=== PATIENT | male | born 1965 | race Caucasian/White ===

== ENCOUNTER 2016-10-24 07:55 | Day surgery (SDC) | payer OTHER ==
--- NOTE | 2016-10-24 09:35 | Operative Note ---
Endoscopy Report Date: 10/24/16 Preoperative diagnosis: Screening colonoscopy, family history of colon cancer Procedure Type of procedure: Colonoscopy with snare polypectomy 2 Indications: Patient had been scheduled for colonoscopy on a couple of occasions. He was previously scheduled but states that he had eaten regular food the day before prior to starting his prep. Last time he had developed headache with taking GoLYTELY and then proceeded with vomiting of the prep. He is a 51- year-old white male originally referred from Dr. Tavarez for colonoscopy. Patient actually requested a colonoscopy. Patient's father of colon cancer in his 50s. Patient has not had any symptoms. He's had no prior colonoscopy. 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 I reviewed his records, this was done by Dr. Perez several years ago. 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 He was referred to where it was felt that no additional therapy or treatments were needed. Consent was obtained and patient was taken to same-day surgery endoscopy procedure room. He was positioned in a lateral decubitus position. Adequate intravenous sedation was achieved with titration of 9 mg Versed and 200 g fentanyl for the duration of the procedure. Variable stiffness Olympus colonoscope was inserted via the anus. With some difficulty was advanced to the cecum as he had a rather floppy redundant sigmoid colon and atonic colon. Ultimately appendiceal orifice and ileocecal valve were clearly identified and examined. Colonoscope was withdrawn through the colon with careful surveillance. In the mid sigmoid colon there was a sessile adenomatous appearing polyp removed in a piecemeal fashion using hot snare and cold biopsy forceps. In the distal sigmoid there was a somewhat pedunculated adenomatous appearing polyp removed with hot snare. Within the rectum retroflexion revealed no evidence of any internal lesions. Colonoscope was withdrawn. Findings 1. Polyp Follow-Up Follow-Up: Plan for repeat colonoscopy 3-5 years pending the pathology given the family history and personal prior history. at [id number]
[2016-10-24 10:47] VITALS: BP 117/82
== END 2016-10-24 10:05 | disposition home or self-care (01) ==
LOC: SDC 07:55
PROVIDERS: Surgery
PROC: 0DBN8ZX Excision of Sigmoid Colon, Via Natural or Artificial Opening Endoscopic, Diagnostic (ICD-10-PCS; principal; 2016-10-24 11:30)
DX: Z12.11 Encounter for screening for malignant neoplasm of colon (principal); Z80.0 Family history of malignant neoplasm of digestive organs; K63.5 Polyp of colon